=== PATIENT | male | born 1960 | race Two or more races ===

== ENCOUNTER 2025-04-20 21:24 | Emergency (ER) | payer MEDICARE, MEDICAID, SELFPAY ==
[2025-04-20 21:33] VITALS: BP 111/72; PULSE 70; RESP 18; TEMP 36.5; O2SAT 96; BMI 30.2
--- NOTE | 2025-04-20 22:05 | XR_ITS ---
Examination: CT brain head without contrast. 2-D sagittal coronal reconstructions Date and time of exam: April 20, 2025, 11:48 p.m. INDICATIONS: Left eye hemorrhage and headache left eye today CTDI: vol (mGy): 48.6 DLP: (mGycm): 922 Technique: Multiple CT axial sections of the brain have been obtained, 5 mm slice thickness. Contrast has not been administered. 2-D sagittal, coronal reconstructions have been obtained Low dose protocols were performed. One or more of the following dose reduction techniques were used; automated exposure control, adjustment of the mA and/or KV according to patient size, use of iterative reconstruction technique. Findings: No significant ventricular enlargement. Intra-axial or extra-axial hemorrhage density is not seen. No mass effect or midline shift Basal cisterns are not remarkable. Fourth ventricle is midline. Cranial vault intact. Impression: Negative for acute hemorrhage, mass effect or midline shift Advise clinical correlation and follow-up accordingly
--- NOTE | 2025-04-20 22:06 | EDRME_ITS ---
Rapid Medical Screening Exam [facility] Arrival date/time: 04/20/25 21:24 This is a case of 65-year-old male with no medical history came in in the emergency room due to headache blurring of vision redness on the left eye and left ear pain for 2 days worsening of the symptoms this patient decided to start consult with the emergency room Chief Complaint: Ear Time Seen by Provider: 04/20/25 21:43 Vital signs: Vital Signs Temperature 97.7 F 04/20/25 21:33 Pulse Rate 70 04/20/25 21:33 Respiratory Rate 18 04/20/25 21:33 Blood Pressure 111/72 04/20/25 21:33 Pulse Oximetry (%) 96 04/20/25 21:33 Oxygen Delivery Method Room Air 04/20/25 21:33 Exam: Noted subconjunctival hemorrhage on the left eye normal rate regular rhythm no murmur neurological exam is normal Clinical Impression: Headache subconjunctival hemorrhage ear pain
[2025-04-20 22:35] LABS: Basophils # (Auto) 0.1 Thou/mm3 (0.0-0.2); Basophils % (Auto) 1 % (0-2.5); Eosinophils # (Auto) 0.2 Thou/mm3 (0.0-0.5); Eosinophils % (Auto) 2 % (0-10); Hematocrit 40.2 % (41.0-53.0); Hemoglobin 14.7 g/dL (13.5-16.0); Immature Granulocytes Auto 0.01 Thou/mm3 (0.00-0.00); Lymphocytes # (Auto) 2.0 Thou/mm3 (1.0-4.8); Lymphocytes % (Auto) 25 % (10-50); Mean Corpuscular HGB Conc 36.6 g/dl (31.0-37.0); Mean Corpuscular Hemoglobin 32.2 pg (25.0-35.0); Mean Corpuscular Volume 88 fL (80-100); Monocytes # (Auto) 0.6 Thou/mm3 (0.0-0.8); Monocytes % (Auto) 7 % (0-12); Neutrophils # (Auto) 5.3 Thou/mm3 (1.8-7.7); Neutrophils % (Auto) 65 % (37-80); Nucleated Red Blood Cell # 0.00 Thou/mm3 (0.00-0.00); Nucleated Red Blood Cell % 0 /100 WBC (0); Platelet Count 181 Thou/mm3 (140-440); RDW Standard Deviation 38.1 fL (35.1-43.9); Red Blood Count 4.57 Miln/mm3 (4.50-5.90); White Blood Count 8.1 Thou/mm3 (3.8-10.6)
[2025-04-20 22:58] LABS: Alanine Aminotransferase 13 U/L (10-49); Albumin, Serum 3.8 gm/dL (3.4-4.8); Albumin/Globulin Ratio 1.8 (1.2-2.2); Alkaline Phosphatase 126 U/L (46-116); Anion Gap 9 (7-16); Aspartate Amino Transferase 18 U/L (0-34); BUN/Creatinine Ratio 17 Ratio (12-20); Bilirubin,Total 0.5 mg/dL (0.3-1.2); Blood Urea Nitrogen 15 mg/dL (9-23); Calcium 8.5 mg/dL (8.3-10.6); Calcium (Corrected) 8.7 mg/dL (8.5-10.1); Carbon Dioxide 24.7 mMol/L (20.0-31.0); Chloride 104 mMol/L (98-107); Creatinine (Component) 0.9 mg/dL (0.6-1.3); Estimated Creatinine Clearance 66.4 mL/min (>60); Globulin 2.1 gm/dL (2.3-3.5); Osmolality,Calculated 293 (275-295); Potassium 3.8 mMol/L (3.4-5.1); Sodium 138 mMol/L (136-145); Total Protein 5.9 gm/dL (5.7-8.2); eGFR > 60 See Note
[2025-04-20 23:00] LABS: Glucose 413 mg/dL (74-106)
[2025-04-21 00:06] VITALS: BP 125/73; PULSE 62; RESP 16; TEMP 36.5; O2SAT 97
--- NOTE | 2025-04-21 01:19 | PD.EDEAR ---
ED Ear RME/HPI General Chief complaint: Ear Stated complaint: SUBCONJUCTIVAL HEMORRHAGE L EYE Time Seen by Provider: 04/20/25 21:43 Arrival date/time: 04/20/25 21:24 RME / HPI RME / HPI Narrative: 04/20/25 21:24 This is a case of 65-year-old male with no medical history came in in the emergency room due to headache blurring of vision redness on the left eye and left ear pain for 2 days worsening of the symptoms this patient decided to start consult with the emergency room Dr. Fowler?[facility] Main ED Evaluation: 65yo male Related Data Allergies Allergy/AdvReac Type Severity Reaction Status Date / Time No Known Allergies Allergy Verified 04/20/25 21:36 Review of Systems Review of Systems Systems Reviewed: All systems reviewed, normal except as documented Past Medical History Past Medical History CARDIAC: Negative Congestive Heart Failure RESPIRATORY: Negative Chronic Obstructive Pulmonary Disease (COPD) GENITOURINARY: Negative Renal Disease ENDOCRINE: Positive Diabetes Mellitus Type 2; Negative Diabetes Mellitus Type 1 Social History SMOKING STATUS: Never smoker Course Quality Measures none Orders Category Date Time Status CT head/brain wo con Stat Exams 04/20/25 22:05 Completed CBC Stat Lab 04/20/25 22:20 Completed CMP [Comprehensive Metabolic Panel] Stat Lab 04/20/25 22:20 Completed Vital Signs Vital signs: Vital Signs Temperature 97.7 F 04/20/25 21:33 Pulse Rate 70 04/20/25 21:33 Respiratory Rate 18 04/20/25 21:33 Blood Pressure 111/72 04/20/25 21:33 Pulse Oximetry (%) 96 04/20/25 21:33 Oxygen Delivery Method Room Air 04/20/25 21:33 Ear MDM Narrative MDM Narrative:: Scribe Attestation: 04/21/25 - Jacquelyn Bell am scribing for and in the presence of Dr. Fowler. Patient data External records reviewed:: [facility] previous records (Per chart review, patient has no previous ED visits or admissions to this facility.) Clinical information provided by:: patient Social determinants that could affect healthcare access:: none Patient has the following chronic illnesses:: DM How is presenting disease/condition affected by chronic disease/condition?: uneffected by Evaluation data The following diagnostics were reviewed and interpreted by me:: lab results and radiology exam(s) Lab and/or radiology exams considered but not ordered:: none Interpretation Summary: [facility] Report Signed Patient: JAYY BOTELLO Record#: [id number] Birthdate: 1960 Age/Sex: 65 / M Location: [facility] Attending Dr: Ordering Physician: Kong Hopkins Date of Service: 04/20/25 Procedure(s): CT head/brain wo con Accession Number(s): [id number] cc: Tobin Thornton MD; Kong Hopkins~ Examination: CT brain head without contrast. 2-D sagittal coronal reconstructions Date and time of exam: April 20, 2025, 11:48 p.m. INDICATIONS: Left eye hemorrhage and headache left eye today CTDI: vol (mGy): 48.6 DLP: (mGycm): 922 Technique: Multiple CT axial sections of the brain have been obtained, 5 mm slice thickness. Contrast has not been administered. 2-D sagittal, coronal reconstructions have been obtained Low dose protocols were performed. One or more of the following dose reduction techniques were used; automated exposure control, adjustment of the mA and/or KV according to patient size, use of iterative reconstruction technique. Findings: No significant ventricular enlargement. Intra-axial or extra-axial hemorrhage density is not seen. No mass effect or midline shift Basal cisterns are not remarkable. Fourth ventricle is midline. Cranial vault intact. Impression: Negative for acute hemorrhage, mass effect or midline shift Advise clinical correlation and follow-up accordingly Dictated By: Tobin Thornton MD Signed By: <Electronically signed by Tobin Thornton MD in [place]> 04/21/25 0010 Medications / Prescriptions Medications or Prescriptions considered but not ordered:: none Medical Decision Making Lab Data 04/20/25 22:20 04/20/25 22:20 Labs: Lab Results 04/20/25 Range/Units 22:20 WBC 8.1 (3.8-10.6) Thou/mm3 RBC 4.57 (4.50-5.90) Miln/mm3 Hgb 14.7 (13.5-16.0) g/dL Hct 40.2 L (41.0-53.0) % MCV 88 (80-100) fL MCH 32.2 (25.0-35.0) pg MCHC 36.6 (31.0-37.0) g/dl RDW Std Deviation 38.1 (35.1-43.9) fL Plt Count 181 (140-440) Thou/mm3 Neut % (Auto) 65 (37-80) % Lymph % (Auto) 25 (10-50) % [place] % (Auto) 7 (0-12) % Eos % (Auto) 2 (0-10) % Baso % (Auto) 1 (0-2.5) % Neut # (Auto) 5.3 (1.8-7.7) Thou/mm3 Lymph # (Auto) 2.0 (1.0-4.8) Thou/mm3 [place] # (Auto) 0.6 (0.0-0.8) Thou/mm3 Eos # (Auto) 0.2 (0.0-0.5) Thou/mm3 Baso # (Auto) 0.1 (0.0-0.2) Thou/mm3 Immature Gran # (Auto) 0.01 H (0.00-0.00) Thou/mm3 Absolute Nucleated RBC 0.00 (0.00-0.00) Thou/mm3 Immature Gran % 0 (0-0) % Nucleated RBC % 0 (0) /100 WBC Sodium 138 (136-145) mMol/L Potassium 3.8 (3.4-5.1) mMol/L Chloride 104 (98-107) mMol/L Carbon Dioxide 24.7 (20.0-31.0) mMol/L Anion Gap 9 (7-16) BUN 15 (9-23) mg/dL Creatinine 0.9 (0.6-1.3) mg/dL Estim Creat Clear Calc 66.4 (>60) mL/min eGFR > 60 (60 - ) See Note BUN/Creatinine Ratio 17 (12-20) Ratio Glucose 413 H* (74-106) mg/dL Calculated Osmolality 293 (275-295) Calcium 8.5 (8.3-10.6) mg/dL Corrected Calcium 8.7 (8.5-10.1) mg/dL Total Bilirubin 0.5 (0.3-1.2) mg/dL AST 18 (0-34) U/L ALT 13 (10-49) U/L Alkaline Phosphatase 126 H (46-116) U/L Total Protein 5.9 (5.7-8.2) gm/dL Albumin 3.8 (3.4-4.8) gm/dL Globulin 2.1 L (2.3-3.5) gm/dL Albumin/Globulin Ratio 1.8 (1.2-2.2) Discharge Plan Prescriptions/Referrals Referrals: Claudio Ybarra MD [Primary Care Provider, Family Practice] - In 1 week Patient/Caregiver Discharge Instructions Print Language: Azeri
--- NOTE | 2025-04-21 01:26 | EDNOTE_ITS ---
ED Eye Problem RME/HPI General Chief complaint: Ear Stated complaint: SUBCONJUCTIVAL HEMORRHAGE L EYE Time Seen by Provider: 04/20/25 21:43 Arrival date/time: 04/20/25 21:24 RME / HPI RME / HPI Narrative: 04/20/25 21:24 This is a case of 65-year-old male with no medical history came in in the emergency room due to headache blurring of vision redness on the left eye and left ear pain for 2 days worsening of the symptoms this patient decided to start consult with the emergency room Dr. Fowler?[facility] Main ED Evaluation: 65yo male with a history of DM presents to the ED for a chief complaint of redness to the left eye x 2-3 days. Patient denies any trauma to the left eye. Denies any eye pain, blurry vision, or any other associated symptoms. NKA. Related Data Allergies Allergy/AdvReac Type Severity Reaction Status Date / Time No Known Allergies Allergy Verified 04/20/25 21:36 Review of Systems Review of Systems Systems Reviewed: All systems reviewed, normal except as documented ED Exam Narrative Physical exam: Generally patient is alert and in no obvious distress, eyes show subconjunctival hemorrhage on the left with pupils being equal round and reactive to light and clear anterior chambers bilaterally. Ears show TMs to be clear bilaterally. Heart regular rate and rhythm, lungs clear to auscultation equal bilaterally, abdomen soft bowel sounds present's and nontender, skin is warm pale and dry, neurologic exam shows Sperry Coma Scale of 15 without focal motor deficits. Course Quality Measures none Orders Category Date Time Status CT head/brain wo con Stat Exams 04/20/25 22:05 Completed CBC Stat Lab 04/20/25 22:20 Completed CMP [Comprehensive Metabolic Panel] Stat Lab 04/20/25 22:20 Completed Insulin Regular Med 04/21/25 01:25 Discontinued 12 unit SC X1 ONE Vital Signs Vital signs: Vital Signs Temperature 97.7 F 04/20/25 21:33 Pulse Rate 70 04/20/25 21:33 Respiratory Rate 18 04/20/25 21:33 Blood Pressure 111/72 04/20/25 21:33 Pulse Oximetry (%) 96 04/20/25 21:33 Oxygen Delivery Method Room Air 04/20/25 21:33 Eye MDM Narrative MDM Narrative:: Scribe Attestation: 04/21/25 - Jacquelyn Bell am scribing for and in the presence of Dr. Fowler. Patient's blood sugar here in the emergency room was 413. Patient is not diabetic ketoacidosis. Patient received 12 units of regular insulin subcu. Head CT ordered prior to my evaluation was unremarkable. Blood work shows no evidence of thrombocytopenia. Patient denies vision problems. He denies trauma to the left eye. Despite this fact the patient somehow sustained a subconjunctival hemorrhage. He is not on antiplatelet or anticoagulation medication. Patient will be safely discharged home. He may take Tylenol for pain. Follow-up with his doctor as needed. Continue to follow his diabetic diet and take his current diabetic medication. Return to ER as needed or if condition worsens. Patient data External records reviewed:: [facility] previous records (Per chart review, patient has no previous ED visits or admissions to this facility.) Clinical information provided by:: patient Social determinants that could affect healthcare access:: none Patient has the following chronic illnesses:: DM How is presenting disease/condition affected by chronic disease/condition?: uneffected by Evaluation data The following diagnostics were reviewed and interpreted by me:: lab results and radiology exam(s) Lab and/or radiology exams considered but not ordered:: none Interpretation Summary: [facility] Report Signed Patient: JAYY BOTELLO. Record#: [id number] Birthdate: 1960 Age/Sex: 65 / M Location: [facility] Attending Dr: Ordering Physician: Kong Hopkins Date of Service: 04/20/25 Procedure(s): CT head/brain wo con Accession Number(s): [id number] cc: Tobin Thornton MD; Kong Hopkins~ Examination: CT brain head without contrast. 2-D sagittal coronal reconstructions Date and time of exam: April 20, 2025, 11:48 p.m. INDICATIONS: Left eye hemorrhage and headache left eye today CTDI: vol (mGy): 48.6 DLP: (mGycm): 922 Technique: Multiple CT axial sections of the brain have been obtained, 5 mm slice thickness. Contrast has not been administered. 2-D sagittal, coronal reconstructions have been obtained Low dose protocols were performed. One or more of the following dose reduction techniques were used; automated exposure control, adjustment of the mA and/or KV according to patient size, use of iterative reconstruction technique. Findings: No significant ventricular enlargement. Intra-axial or extra-axial hemorrhage density is not seen. No mass effect or midline shift Basal cisterns are not remarkable. Fourth ventricle is midline. Cranial vault intact. Impression: Negative for acute hemorrhage, mass effect or midline shift Advise clinical correlation and follow-up accordingly Dictated By: Tobin Thornton MD Signed By: <Electronically signed by Tobin Thornton MD in [place]> 04/21/25 0010 Medications / Prescriptions Medications or Prescriptions considered but not ordered:: none Medication administrations:: Medication Administration History Discontinued Medications Insulin Human Regular (Insulin Hum Regular 1 Unit/0.01 Ml (Per Unit)) 12 unit SC X1 ONE Stop: 04/21/25 01:26 see above Consultations Consultation(s) initiated? (list below): No Diagnosis Eye Problem Differential Diagnosis: other (See MDM) Most likely diagnosis given after review of the tests above:: see clinical impression below Admission Indicated Admission indicated?: not indicated Admission Request Was there a request for admission?: No Disposition Plan Disposition Plan: Discharge Discharge Attestation Discharge Attestation: The patient and all family members were given an opportunity to ask questions and understood the discharge instructions. Discharge instructions specifically effects, indications for sooner follow up or return to the emergency department, and the expected course of current diagnosis. Patient condition: Stable Discharge Plan Plan Patient Disposition: HOME (Self Care) Prescriptions/Referrals Referrals: Claudio Ybarra MD [Primary Care Provider, Family Practice] - In 1 week Problem List Clinical Impression: Subconjunctival hemorrhage, Cephalgia, Poorly controlled diabetes mellitus Patient/Caregiver Discharge Instructions Education Materials: Subconjunctival Hemorrhage, ED Diabetes- Overview Additional Instructions: Continue her diabetic medication. Tylenol for pain. Follow-up with your doctor for further treatment and evaluation as needed. The redness to the left eye may take as long as a month to disappear. Print Language: Slovenian Stand Alone Forms: [facility] Award Info., Patient Portal Info Letter
[2025-04-21 01:51] VITALS: BP 132/72; PULSE 61; RESP 17; TEMP 36.6; O2SAT 97
== END 2025-04-21 01:59 | disposition home or self-care (01) ==
PROVIDERS: Nurse Practitioner Family; Emergency Provider Emergency Medicine; PCP Family Medicine
DX: H11.32 Conjunctival hemorrhage, left eye (principal); E11.65 Type 2 diabetes mellitus with hyperglycemia; R51.9 Headache, unspecified; Z79.4 Long term (current) use of insulin
CPT/HCPCS: 36415; 70450; 80053; 85025; 99283